=== PATIENT | female | born 1975 | race Hispanic/Latino ===

== ENCOUNTER → 2018-10-12 | Outpatient (CLI) | payer OTHER ==
--- NOTE | 2018-10-12 12:41 | Diagnostic Imaging Report ---
Ultrasound-guided right thyroid nodule fine needle aspiration Pre-Procedure Diagnosis: Right mid pole thyroid nodule. Post-procedure Diagnosis:Right mid pole thyroid nodule status post FNA. [employer]ist: Robel Martinez MD Sedation: 5 cc 1% lidocaine local anesthesia. Estimate blood loss: None. Complications: None Implants/Grafts: None Specimen: 25-gauge needle biopsy x 6 Procedure/Findings: Informed consent was obtained and the patient positioned supine in the ultrasound suite. A timeout was performed, followed by preliminary ultrasound of the thyroid. The neck was prepped and draped in standard sterile fashion. Using real-time ultrasound guidance a 25-gauge needle was advanced into the right mid pole hypoechoic thyroid nodule. An image was stored in the electronic medical record. The sample was submitted to pathology for adequacy review. The procedure was repeated an additional five times, using identical technique with image capture for the medical record. At the end of the procedure a sterile dressing was applied. Impression: Ultrasound guided fine needle aspiration of right mid pole thyroid nodule. Signed by: Dr. Robel Martinez MD on 10/12/2018 12:38 PM
== END ==
LOC: US 10:44
PROVIDERS: ATTEND Otolaryngology Otolaryngology/Facial Plastic Surgery
DX: E04.1 Nontoxic single thyroid nodule (principal)
CPT/HCPCS: 10022; 76942; 88112; 88172; 88173; 88305